=== PATIENT | male | born 1945 | race Caucasian/White ===

== ENCOUNTER 2022-02-21 08:34 | Outpatient (RCR) | payer OTHER | END 2022-03-08 | disposition home or self-care (01) | LOC: ONC 08:34 | PROVIDERS: ATTEND Radiology Radiation Oncology | DX: N40.0 Benign prostatic hyperplasia without lower urinary tract symptoms (principal); N28.1 Cyst of kidney, acquired; K40.90 Unilateral inguinal hernia, without obstruction or gangrene, not specified as recurrent; K44.9 Diaphragmatic hernia without obstruction or gangrene; I70.90 Unspecified atherosclerosis; Z85.46 Personal history of malignant neoplasm of prostate | CPT/HCPCS: 99205 ==

== ENCOUNTER → 2022-07-13 | Outpatient (CLI) | payer OTHER ==
[~2022-07-13] VITALS: Ht 177.8 cm; Wt 86.4 kg
[~2022-07-13] MED LIST: LOSA50TA63 PO
== END | disposition home or self-care (01) ==
LOC: PREOP 05:38
PROVIDERS: ATTEND Radiology Radiation Oncology
DX: Z01.818 Encounter for other preprocedural examination (principal)

== ENCOUNTER 2022-07-20 06:05 | Day surgery (SDC) | payer OTHER ==
[~2022-07-20] VITALS: Ht 128 cm; Wt 86.4 kg
[2022-07-20] MEDS ORDERED: LACTATED RINGERS 1,000 ML IV PRN (06:15)
--- NOTE | 2022-07-20 06:47 | Progress Note-Pre Operative ---
Pre-Operative Progress Note Date of Available H&P: Jul 11, 2022 Date H&P Reviewed: Jul 20, 2022 Time H&P Reviewed: 06:46 History & Physical: H&P Reviewed, Patient Examed, No changes noted Pre-Operative Diagnosis: Prostate cancer cT2a, PSA 12.6, [place]ma 7 (3+4) LUL HINDS MD Jul 20, 2022 06:47
--- NOTE | 2022-07-20 06:50 | Discharge Inst-Simple/Standard ---
Discharge Inst-Standard Reconcile Patient Problems Problems Reviewed?: Yes Discharge Medications New, Converted or Re-Newed RX: Other (Patient has antibiotics and instructions at home.) Patient Instructions/Follow Up Plan of Care/Instructions/FU: Treatment planning ct simulation at [facility] cancer center 08/03/22 yamile 1:00 pm Drink 1/2 bottle of oral contrast at 12:30 pm prior to appointment. Activity as Tolerated: Yes Discharge Diet: No Restrictions LUL HINDS MD Jul 20, 2022 06:50
[2022-07-20 06:53] VITALS: BP 161/97
[2022-07-20] MEDS ORDERED: MIDAZOLAM 2 MG/2 ML (VERSED) VIAL ONE (07:01)
[2022-07-20] MEDS ORDERED: ONDANSETRON 4 MG/2 ML (SDV) Z0FRAN ONE (07:01)
[2022-07-20] MEDS ORDERED: proPOfol 200 MG/20 ML (DIPRIVAN) VIAL IV ONE (07:01)
[2022-07-20] MEDS ORDERED: LIDOCAINE PF 2% 5 ML (XYLOCAINE) VIAL ONE (07:01)
[2022-07-20] MEDS ORDERED: fentaNYL INJ 100 MCG/2 ML AMP ONE (07:01)
[2022-07-20] MEDS ORDERED: SEVOFLURANE (ULTANE) 15 ML INHAL SOLN ONE (08:20)
[2022-07-20 08:23] VITALS: BP 110/70
[2022-07-20 08:30] VITALS: BP 91/63
[2022-07-20] MEDS ORDERED: ONDANSETRON 4 MG/2 ML (SDV) Z0FRAN IVP PRN (08:30)
[2022-07-20] MEDS ORDERED: morphine INJ 10 MG/ML 1ML (SYR OR VIAL) IVP ONE (08:30)
--- NOTE | 2022-07-20 08:33 | Progress Note-Post Operative ---
Post-Operative Progess Note Surgeon (s)/Vacuum Worker (s) Surgeon LUL HINDS MD Vacuum Worker: N/A Pre-Operative Diagnosis Prostate cancer cT2a, PSA 12.6, Katia 7 (3+4) Post-Operative Diagnosis Same as pre-op Procedure & Operative Findings Date of Procedure 07/20/22 Procedure Performed/Findings (1)Placement of fiducial gold seed markers (2) Injection of biodegradable hydrogel prostate-rectal spacer utilizing the [employer] system Anesthesia Type General Estimated Blood Loss Estimated blood loss (mL): None Specimens/Packing Specimens Removed None Packing: None LUL HINDS MD Jul 20, 2022 08:33
[2022-07-20 08:40] VITALS: BP 108/73
[2022-07-20 08:50] VITALS: BP 127/85
[2022-07-20 09:00] VITALS: BP 123/86
--- NOTE | 2022-07-20 09:25 | Anesthesia-General Post-Op ---
General Patient Condition Mental Status/LOC: Same as Preop Cardiovascular: Satisfactory Nausea/Vomiting: Absent Respiratory: Satisfactory Pain: Controlled Complications: Absent Post Op Complications Complications None Follow Up Care/Instructions Patient Instructions None needed. Anesthesia/Patient Condition Patient Condition Patient is doing well, no complaints, stable vital signs, no apparent adverse anesthesia problems. No complications reported per nursing. FREDY WILKES CRNA Jul 20, 2022 09:25
== END 2022-07-20 10:01 | disposition home or self-care (01) ==
LOC: SDC 06:05
PROVIDERS: ATTEND Radiology Radiation Oncology
DX: C61 Malignant neoplasm of prostate (principal); Z87.891 Personal history of nicotine dependence; Z28.310 Unvaccinated for COVID-19
CPT/HCPCS: 87081

== ENCOUNTER 2022-08-03 12:59 | Outpatient (RCR) | payer OTHER | END 2022-08-05 | disposition home or self-care (01) | LOC: ONC 12:59 | PROVIDERS: ATTEND Radiology Radiation Oncology | DX: I70.90 Unspecified atherosclerosis (principal); C61 Malignant neoplasm of prostate | CPT/HCPCS: 77334 ==

== ENCOUNTER → 2022-09-05 | Outpatient (RCR) | payer OTHER | END | disposition home or self-care (01) | LOC: ONC 08-08 10:45 | PROVIDERS: ATTEND Radiology Radiation Oncology | DX: Z51.0 Encounter for antineoplastic radiation therapy (principal); N40.0 Benign prostatic hyperplasia without lower urinary tract symptoms; N28.1 Cyst of kidney, acquired; K40.90 Unilateral inguinal hernia, without obstruction or gangrene, not specified as recurrent; K44.9 Diaphragmatic hernia without obstruction or gangrene; I70.90 Unspecified atherosclerosis; Z85.46 Personal history of malignant neoplasm of prostate | CPT/HCPCS: 77300; 77301; 77336; 77338; 77385; 77386 ==

== ENCOUNTER → 2022-10-06 | Outpatient (RCR) | payer OTHER | END | disposition home or self-care (01) | LOC: ONC 09-06 13:15 | PROVIDERS: ATTEND Radiology Radiation Oncology | DX: Z51.0 Encounter for antineoplastic radiation therapy (principal); C61 Malignant neoplasm of prostate | CPT/HCPCS: 77300; 77336; 77385; 77470 ==

== ENCOUNTER 2022-12-01 09:56 | Outpatient (RCR) | payer OTHER | END 2022-12-06 | disposition home or self-care (01) | LOC: ONC 09:56 | PROVIDERS: ATTEND Radiology Radiation Oncology | DX: C61 Malignant neoplasm of prostate (principal) | CPT/HCPCS: 99213 ==